=== PATIENT | male | born 1955 | race Caucasian/White ===

== ENCOUNTER 2024-04-12 09:01 | Day surgery (SDC) | payer MEDICARE ==
[~2024-04-12] VITALS: Ht 182.9 cm; Wt 113.4 kg
[~2024-04-12 09:01] MED LIST: BACTRIM DS1 TAB PO; CIPRO XR500 MG PO; DILAUDID 2MG2 MG/TA1 PO; [UNRECOGNIZED DRUG - OTHER] PO
[2024-04-12] MEDS ORDERED: GLYCOPYRROLATE 0.2 MG/ML IV ONE (12:26)
[2024-04-12] MEDS ORDERED: PROPOFOL 200 MG/20 ML VIAL IV ONE (12:26)
[2024-04-12] MEDS ORDERED: LIDOCAINE HCL 2% 2ML SDV IV ONE (12:26)
[2024-04-12 12:32] VITALS: BP 115/65
== END 2024-04-12 13:34 | disposition home or self-care (01) ==
LOC: ORM 09:01
PROVIDERS: ATTEND Internal Medicine Gastroenterology
PROC: 0DBL8ZX Excision of Transverse Colon, Via Natural or Artificial Opening Endoscopic, Diagnostic (ICD-10-PCS; principal; 2024-04-12)
DX: Z12.11 Encounter for screening for malignant neoplasm of colon (principal); D12.3 Benign neoplasm of transverse colon; K57.30 Diverticulosis of large intestine without perforation or abscess without bleeding; K64.8 Other hemorrhoids; Z86.010 Personal history of colon polyps